=== PATIENT | male | born 1950 | race Caucasian/White ===

== ENCOUNTER 2020-01-15 11:17 | Emergency (ER) | payer OTHER ==
[~2020-01-15] VITALS: Ht 182.9 cm; Wt 86.2 kg
[2020-01-15 11:27] VITALS: BP 141/88
--- NOTE | 2020-01-15 12:20 | NUR ---
69 Y/O M C/C LUE PAIN DUE TO TRIPPING AND FALLING. PER PT DENIES HEAD INJURY / LOC. PT 10/10 PAIN ON MOVEMENT ; 3/10 PAIN AT REST. PT NKA. HX SCHIZOPHRENIA. RX FOR SCHIZOPHRENIA, PT UNABLE TO NAME RX. NO N/V/D. SIDE RAIL X1. PT AMBULATORY. A/OX4. [facility] WDL/ROM LIMITED.
--- NOTE | 2020-01-15 12:33 | NUR ---
Dr. Hector is evaluating the patient at bedside.
--- NOTE | 2020-01-15 12:49 | NUR ---
XRAY AT BEDSIDE
[2020-01-15] MEDS ORDERED: IBUPROFEN 400 MG TAB PO ONE (13:35)
--- NOTE | 2020-01-15 13:55 | NUR ---
PT RESTING IN BED, SIDE RAIL X1
--- NOTE | 2020-01-15 14:00 | NUR ---
APPLIED SLING TO LEFT ARM WITHOUT ANY ISSUES
[2020-01-15 14:01] VITALS: BP 141/88
== END 2020-01-15 14:01 | disposition home or self-care (01) ==
LOC: MED 11:17
DX: S40.022A Contusion of left upper arm, initial encounter (principal); F20.9 Schizophrenia, unspecified; F17.210 Nicotine dependence, cigarettes, uncomplicated; W19.XXXA Unspecified fall, initial encounter; Y93.89 Activity, other specified; Y92.89 Other specified places as the place of occurrence of the external cause; Y99.8 Other external cause status
CPT/HCPCS: 73060; 73080; 99284; Q0092

== ENCOUNTER 2020-05-26 16:03 | Emergency (ER) | payer OTHER ==
[~2020-05-26] VITALS: Ht 182.9 cm; Wt 81.6 kg
[2020-05-26 16:15] VITALS: BP 105/80
[2020-05-26 19:11] VITALS: BP 105/80
== END 2020-05-26 19:12 | disposition home or self-care (01) ==
LOC: MED 16:03
DX: R60.0 Localized edema (principal); F20.9 Schizophrenia, unspecified; F17.200 Nicotine dependence, unspecified, uncomplicated; Z71.6 Tobacco abuse counseling
CPT/HCPCS: 93971; 99284; Q0092

== ENCOUNTER 2023-04-04 13:08 | Inpatient (IN) | payer OTHER ==
[~2023-04-04] VITALS: Ht 177.8 cm; Wt 86.2 kg
[2023-04-04 13:11] VITALS: BP 105/62
[2023-04-04 13:43] LABS: BASOPHILS # (AUTO) 0.1 K/uL (0.00-0.22); BASOPHILS % (AUTO) 0.5 % (0.0-2.0); EOSINOPHILS % (AUTO) 0.1 % (0.0-4.0); HEMATOCRIT 38.2 % (36-52); HEMOGLOBIN 12.9 g/dL (12.0-18.0); LYMPHOCYTES % (AUTO) 6.8 % (20.5-51.1); MEAN CORPUSCULAR HEMOGLOBIN 29 pg (27-31); MEAN CORPUSCULAR HGB CONC 34 g/dL (33-37); MEAN CORPUSCULAR VOLUME 86.2 fL (80-94); MONOCYTES # (AUTO) 0.8 K/uL (0.8-1.0); MONOCYTES % (AUTO) 5.4 % (1.7-9.3); NEUTROPHILS # (AUTO) 13.4 K/uL (1.8-7.7); NEUTROPHILS % (AUTO) 87.2 % (42.2-75.2); PLATELET COUNT (AUTO) 215 K/uL (140-450); RED BLOOD CELL COUNT(AUTO) 4.43 MIL/uL (4.20-6.10); RED CELL DISTRIBUTION WIDTH 14.8 % (11.6-13.7); WHITE BLOOD COUNT (AUTO) 15.4 K/uL (4.8-10.8)
[2023-04-04 14:05] LABS: ALBUMIN 2.9 g/dL (3.4-5.0); ANION GAP 11.8 (8-16); ASPARTATE AMINOTRANSFERASE 15 U/L (15-37); CARBON DIOXIDE 25.6 mmol/L (21-32); CHLORIDE 103 mmol/L (98-107); CREATININE 1.3 mg/dL (0.6-1.3); GLUCOSE 133 mg/dL (74-106); POTASSIUM 3.4 mmol/L (3.5-5.1); SODIUM SERUM 137 mmol/L (136-145); UREA NITROGEN, BLOOD 13 mg/dL (7-18)
[2023-04-04] MEDS ORDERED: IPRATROPIUM 0.02% 0.5 MG/2.5 ML NEBU INH ONE ×2 (14:15→16:05)
[2023-04-04] MEDS ORDERED: predniSONE 20 MG TAB PO ONE (14:15)
[2023-04-04] MEDS ORDERED: ALBUTEROL 0.083% 2.5 MG/3 ML NEBU INH ONE ×2 (14:15→16:05)
[2023-04-04] MEDS ORDERED: predniSONE 20 MG TAB ONE (16:23)
[2023-04-04] MEDS ORDERED: AZITHROMYCIN 500 MG in DEXTROSE 5% 250 ML IV ONE (17:00)
[2023-04-04] MEDS ORDERED: cefTRIAXone 1,000 MG VIAL ONE (17:31)
[2023-04-04] MEDS ORDERED: AZITHROMYCIN 500 MG INJ VIAL IV ONE (17:32)
[2023-04-04] MEDS ORDERED: PIPERACILLIN/TAZOBACTAM 3.375 GM in DEXTROSE 5% 50 ML IV SCH (18:31)
[2023-04-04] MEDS ORDERED: PIPERACILLIN/TAZOBACTAM 3.375 GM VIAL IV ONE ×2 (18:33→23:15)
[2023-04-04 18:54] LABS: APPEARANCE,URINE CLEAR (CLEAR); BILIRUBIN,URINE NEGATIVE (NEGATIVE); BLOOD, URINE NEGATIVE (NEGATIVE); COLOR,URINE YELLOW (YELLOW); LEUKOCYTE ESTERASE ,URINE NEGATIVE (NEGATIVE); NITRITE, URINE NEGATIVE (NEGATIVE); PH,URINE 6.5 (5.0-9.0); UGLUCOSE NEGATIVE (NEGATIVE)
--- NOTE | 2023-04-04 19:45 | NUR ---
Patient report received from López BARR. Patient comfortable and safe in bed. Patient being monitored at this time, connected to monitor. VS stable at this time.
--- NOTE | 2023-04-04 20:40 | NUR ---
Admitted from , with chief complaint of GENERALIZED WEAKNESS , 72 y/o ,Male, Cooperative, admitted for pneumonia, awake, alert and oriented x 3. no o2 1l nc sating 97 %. no s/sx of distress at the moment. pt can ambulate with assist. sandwich and apple juice provided. oriented to call light, bed, phone,television, bathroom, smoking policy, visiting hours, procedures, ID bracelet on. Belongings list checked.all precautions in place. call light within reach. will continue to monitor.
--- NOTE | 2023-04-04 20:50 | NUR ---
Patient will be admitted to care of Dr. Freire. Admited to Telemetry. Will go to room 123B. Belongings list completed. Report to Redd ABR[facility].
[2023-04-04] MEDS: PIPERACILLIN/TAZOBACTAM 3.375 GM in DEXTROSE 5% 50 ML IV SCH (23:36)
[2023-04-05] VITALS: BP 114/82
--- NOTE | 2023-04-05 | NUR ---
SCHEDULED MEDICATIONS GIVEN. PT TOLERATED WELL. NO ACUTE DRUG REACTION NOTED. ALL PRECAUTIONS IN PLACE. CALL LIGHT WITHIN REACH. WILL CONTINUE TO MONITOR.
--- NOTE | 2023-04-05 01:20 | NUR ---
PT ASLEEP. NO S/SX OF DISTRESS NOTED. O2 SAT AT 98%. ALL PRECAUTIONS IN PLACE. CALL LIGHT WITHIN REACH. WILL CONTINUE TO MONITOR.
[2023-04-05] MEDS ORDERED: PIPERACILLIN/TAZOBACTAM 3.375 GM VIAL IV ONE (03:45)
[2023-04-05 04:00] VITALS: BP 112/62
[2023-04-05] MEDS ORDERED: PIPERACILLIN/TAZOBACTAM 3.375 GM in DEXTROSE 5% 50 ML IV SCH (05:00)
[2023-04-05 05:01] LABS: BASOPHILS % (AUTO) 0.3 % (0.0-2.0); HEMATOCRIT 38.1 % (36-52); HEMOGLOBIN 12.8 g/dL (12.0-18.0); LYMPHOCYTES # (AUTO) 0.6 K/uL (2.0-11.5); LYMPHOCYTES % (AUTO) 4.2 % (20.5-51.1); MEAN CORPUSCULAR HEMOGLOBIN 29 pg (27-31); MEAN CORPUSCULAR HGB CONC 34 g/dL (33-37); MEAN CORPUSCULAR VOLUME 86.3 fL (80-94); MONOCYTES # (AUTO) 0.5 K/uL (0.8-1.0); MONOCYTES % (AUTO) 3.9 % (1.7-9.3); NEUTROPHILS # (AUTO) 12.3 K/uL (1.8-7.7); NEUTROPHILS % (AUTO) 91.6 % (42.2-75.2); PLATELET COUNT (AUTO) 230 K/uL (140-450); RED BLOOD CELL COUNT(AUTO) 4.41 MIL/uL (4.20-6.10); WHITE BLOOD COUNT (AUTO) 13.4 K/uL (4.8-10.8)
[2023-04-05 05:26] LABS: ANION GAP 9.4 (8-16); CARBON DIOXIDE 27.9 mmol/L (21-32); CHLORIDE 108 mmol/L (98-107); CREATININE 1.2 mg/dL (0.6-1.3); GLUCOSE 166 mg/dL (74-106); POTASSIUM 3.3 mmol/L (3.5-5.1); SODIUM SERUM 142 mmol/L (136-145); UREA NITROGEN, BLOOD 14 mg/dL (7-18)
[2023-04-05] MEDS: PIPERACILLIN/TAZOBACTAM 3.375 GM in DEXTROSE 5% 50 ML IV SCH ×3 (05:40→18:08)
--- NOTE | 2023-04-05 05:45 | NUR ---
SCHEDULED MEDICATION GIVEN. PT TOLERATED WELL. ALL PRECAUTIONS IN PLACE. WILL CONTINUE TO MONITOR.
--- NOTE | 2023-04-05 06:56 | NUR ---
PT IS STABLE. NO ACUTE EVENTS THROUGHOUT THE NIGHT. ALL NEEDS MET. NO S/SX OF DISTRESS AT THE MOMENT. NO COMPLAINS OF PAIN. ALL SAFETY PRECAUTIONS IN PLACE. CALL LIGHT WITHIN REACH. WILL ENDORSE TO DAY SHIFT NURSE.
--- NOTE | 2023-04-05 07:06 | NUR ---
ASSUMED CONTINUITY OF CARE. INITIAL ASSESSMENT DONE. KEEP COMFORTABLE ON BED. CALL LIGHT WITHIN REACH.
[2023-04-05] MEDS ORDERED: POTASSIUM CHLORIDE 10 MEQ TABER PO PRN (07:35)
[2023-04-05] MEDS ORDERED: HYDROcodone/APAP 7.5/325 MG 1 TAB PO PRN (07:35)
[2023-04-05] MEDS: NACL 0.9% 1,000 ML IV SCH ×2 (07:35→17:15)
[2023-04-05] MEDS ORDERED: MAG SULF 2000 MG/WATER PREMIX 50 ML IV PRN (07:35)
[2023-04-05] MEDS ORDERED: ACETAMINOPHEN 325 MG TAB PO PRN (07:35)
[2023-04-05] MEDS ORDERED: ONDANSETRON 4 MG/2 ML VIAL IVP PRN (07:35)
[2023-04-05 08:00] VITALS: BP 137/84
--- NOTE | 2023-04-05 08:19 | NUR ---
DR. SINGH CAME AND SPOKE TO PT. AT BEDSIDE.
[2023-04-05 08:22] LABS: PROTHROMBIN TIME 10.2 secs (10.8-13.4)
[2023-04-05] MEDS: DOCUSATE SODIUM 100 MG GELCAP PO SCH ×2 (08:43→21:35)
[2023-04-05] MEDS: PANTOPRAZOLE 40 MG INJ VIAL IVP SCH (08:55)
--- NOTE | 2023-04-05 09:00 | NUR ---
PATIENT HAS BEEN SCREENED AND CATEGORIZED MODERATE NUTRITION RISK. PATIENT WILL BE SEEN WITHIN 3-5 DAYS OF ADMISSION. 04/07/23-04/09/[address]
[2023-04-05 09:56] LABS: CHOL/HDL RATIO 2.5 (1-4.5); FREE T4 (FREE THYROXINE) 1.09 ng/dL (0.76-1.46); MAGNESIUM 2.3 mg/dL (1.8-2.4); PHOSPHORUS 2.2 mg/dL (2.5-4.9); THYROID STIMULATING HORMONE 0.8 uIU/mL (0.34-3.74)
[2023-04-05 10:18] LABS: BARBITURATE, URINE NEGATIVE ng/ml (NEG <=200); BENZODIAZEPINE, URINE NEGATIVE ng/mL (NEG <=200); CANNABINOID, URINE NEGATIVE ng/mL (NEG <=50); COCAINE, URINE NEGATIVE ng/mL (NEG <=300); OPIATE, URINE NEGATIVE ng/mL (NEG <=2000); PHENCYCLIDINE SCREEN,URINE NEGATIVE ng/mL (NEG <=25)
[2023-04-05 12:00] VITALS: BP 125/75
--- NOTE | 2023-04-05 15:36 | NUR ---
SEND A COPY OF PT. HOME MEDS LIST TO DR. SINGH FOR MEDS CONTINUATION.
--- NOTE | 2023-04-05 15:41 | NUR ---
Broke Handler: Ingrid CARIAS, in to see patient at bedside. The patient is alert and oriented. I introduced myself and explained my reason for the visit. The patient was in agreement to speaking with me. The patient resides at [facility]. He states he was ambulatory and didn't use any assistive devices. The patient is independent in most areas. He does not have a Power of Fabrication Lead, but indicates he has a conservator through [facility]. There is a that comes to the home to see him regularly. The discharge plan is to return back to the [facility]. At time of discharge, [facility] will be called to arrange transport.
[2023-04-05] MEDS ORDERED: OLAN20TA1 PO (15:57)
[2023-04-05 16:00] VITALS: BP 113/70
--- NOTE | 2023-04-05 16:04 | NUR ---
PHYSICAL THERAPIST CAME FOR PT. EVAL AND TREATMENT. PT. AMBULATES ON HALLWAY WITH ASSISTANCE FROM PHYSICAL THERAPIST.
--- NOTE | 2023-04-05 16:22 | NUR ---
SPUTUM COLLECTED AND DROPPED OFF AT LAB.
[2023-04-05] MEDS: OLANZapine 5 MG TAB PO SCH (17:14)
[2023-04-05] MEDS ORDERED: ALBUTEROL SULFATE/IPRATROPIU 3 ML SOL IH PRN (17:40)
--- NOTE | 2023-04-05 19:09 | NUR ---
PT RECEIVED ON 2L NC. SLIGHT EXPIRATORY WHEEZING NOTED. NO DISTRESS NOTED, SYMMETRICAL CHEST RISE. LEFT PT RESTING COMFORTABLY. WILL CONTINUE TO MONITOR PT.
--- NOTE | 2023-04-05 19:11 | NUR ---
RECEIVED ENDORSEMENT FROM DAY SHIFT NURSE FOR CONTINUITY OF CARE. PT IS ON BED AWAKE AND ALERT. ABLE TO VERBALIZED NEEDS. PT VERBALIZED OF NOT HAVING APPETITE TO EAT. DINNER CONSUME 25%. PT DENIES OF PAIN OR DISCOMFORT. NO SOB OR DISTRESS.
--- NOTE | 2023-04-05 19:12 | NUR ---
REPORT GIVEN TO ERIS SCHAEFFER. IN STABLE CONDITION. IVF INFUSING WELL. ENDORSED ABOUT PT. [facility] CALL FOR MEDICAL DECISION FOR THE PT..
[2023-04-05 20:00] VITALS: BP 114/71
--- NOTE | 2023-04-05 22:00 | NUR ---
PT IS SLEEPING WELL BUT AROUSABLE ON STIMULI.
[2023-04-06] VITALS: BP 104/65
[2023-04-06] MEDS: PIPERACILLIN/TAZOBACTAM 3.375 GM in DEXTROSE 5% 50 ML IV SCH ×5 (00:47→23:20)
--- NOTE | 2023-04-06 01:00 | NUR ---
PT IS DENIES OF PAIN OR DISCOMFORT. NO SOB OR DISTRESS.
[2023-04-06 04:00] VITALS: BP 114/63
--- NOTE | 2023-04-06 04:30 | NUR ---
PT IS ON STABLE CONDITION, NO FACIAL GRIMACING.
[2023-04-06 05:29] LABS: BASOPHILS % (AUTO) 0.5 % (0.0-2.0); EOSINOPHILS # (AUTO) 0.3 K/uL (0-0.4); EOSINOPHILS % (AUTO) 4.3 % (0.0-4.0); HEMATOCRIT 33.8 % (36-52); HEMOGLOBIN 11.6 g/dL (12.0-18.0); LYMPHOCYTES # (AUTO) 1.7 K/uL (2.0-11.5); LYMPHOCYTES % (AUTO) 22.3 % (20.5-51.1); MEAN CORPUSCULAR HEMOGLOBIN 30 pg (27-31); MEAN CORPUSCULAR HGB CONC 34 g/dL (33-37); MEAN CORPUSCULAR VOLUME 86.7 fL (80-94); MONOCYTES # (AUTO) 0.4 K/uL (0.8-1.0); MONOCYTES % (AUTO) 5.1 % (1.7-9.3); NEUTROPHILS # (AUTO) 5.1 K/uL (1.8-7.7); NEUTROPHILS % (AUTO) 67.8 % (42.2-75.2); PLATELET COUNT (AUTO) 211 K/uL (140-450); WHITE BLOOD COUNT (AUTO) 7.6 K/uL (4.8-10.8)
[2023-04-06 06:16] LABS: ANION GAP 8.8 (8-16); CHLORIDE 111 mmol/L (98-107); GLUCOSE 111 mg/dL (74-106); POTASSIUM 3.8 mmol/L (3.5-5.1); SODIUM SERUM 144 mmol/L (136-145); UREA NITROGEN, BLOOD 17 mg/dL (7-18)
[2023-04-06 06:20] LABS: MAGNESIUM 2.2 mg/dL (1.8-2.4); PHOSPHORUS 2.6 mg/dL (2.5-4.9)
--- NOTE | 2023-04-06 07:30 | NUR ---
RECEIVED PT FROM FUNERAL SERVICE APPRENTICE NURSE. FOR CONTINUITY OF CARE. PT IS SLEEPING. VISIBLE CHEST RISE AND FALL. RESPIRATIONS EVEN AND UNLABORED ON 2L NC. PT AROUSABLE TO VOICE. AOX4. SKIN WARM AND DRY TO TOUCH. IV ON R AC 20G, INFUSING NS @50CC. NO DISTRESS NOTED. CALL LIGHT WITHIN REACH. ALL SAFETY PRECAUTIONS IN PLACE.
--- NOTE | 2023-04-06 07:55 | NUR ---
EKG ORDERED ON PT FOR BRADYCARDIA. PT CURRENTLY SITTING UP AND EATING BREAKFAST, HEART RATE IN THE 60S. WILL RETURN LATER FOR EKG. NO DISTRESS NOTED.
[2023-04-06 08:00] VITALS: BP 116/72
[2023-04-06] MEDS: OLANZapine 5 MG TAB PO SCH ×2 (08:48→17:56)
[2023-04-06] MEDS: DOCUSATE SODIUM 100 MG GELCAP PO SCH ×2 (08:48→20:39)
--- NOTE | 2023-04-06 08:53 | NUR ---
PROVIDED PT TEACHING REGARDING SCHEDULED MEDS, ADMINISTERED MORNING SCHEDULED MEDS. PT TOLERATING WELL.
--- NOTE | 2023-04-06 09:44 | NUR ---
MAKING ROUNDS PT NOTED WITH COUGH, NO PRN ON EMAR. DR HEARD INFORMED.
[2023-04-06] MEDS ORDERED: guaiFENesin DM 200/20 MG-10 ML 10 ML UDC PO PRN (10:00)
[2023-04-06] MEDS: PANTOPRAZOLE 40 MG INJ VIAL IVP SCH (10:03)
--- NOTE | 2023-04-06 10:13 | NUR ---
PT SITTING IN BED WATCHING TV, ADMINISTERED PRN MEDICATION FOR COUGH.
[2023-04-06 12:00] VITALS: BP 131/71
--- NOTE | 2023-04-06 14:48 | NUR ---
PT SLEEPING. EQUAL CHEST RISE. RESTING COMFORTABLY. NO DISTRESS NOTED. WILL CONTINUE TO MONITOR.
[2023-04-06 16:00] VITALS: BP 121/83
--- NOTE | 2023-04-06 19:20 | NUR ---
ENDORSED PT TO APPLICATION COORDINATOR NURSE FOR CONTINUITY OF CARE. PT IS STABLE.
[2023-04-06 20:00] VITALS: BP 128/76
--- NOTE | 2023-04-06 20:00 | NUR ---
RECEIVE IN BED NO VOICED COMPLAINTS
[2023-04-06] MEDS: NACL 0.9% 1,000 ML IV SCH (23:35)
[2023-04-07] VITALS: BP 120/64
[2023-04-07 04:00] VITALS: BP 137/80
[2023-04-07 05:28] LABS: BASOPHILS # (AUTO) 0.1 K/uL (0.00-0.22); BASOPHILS % (AUTO) 1.3 % (0.0-2.0); EOSINOPHILS # (AUTO) 0.4 K/uL (0-0.4); EOSINOPHILS % (AUTO) 7.7 % (0.0-4.0); HEMATOCRIT 36.2 % (36-52); HEMOGLOBIN 12.3 g/dL (12.0-18.0); LYMPHOCYTES # (AUTO) 1.4 K/uL (2.0-11.5); LYMPHOCYTES % (AUTO) 26.8 % (20.5-51.1); MEAN CORPUSCULAR HEMOGLOBIN 30 pg (27-31); MEAN CORPUSCULAR HGB CONC 34 g/dL (33-37); MEAN CORPUSCULAR VOLUME 88.1 fL (80-94); MONOCYTES # (AUTO) 0.4 K/uL (0.8-1.0); MONOCYTES % (AUTO) 7.6 % (1.7-9.3); NEUTROPHILS # (AUTO) 2.9 K/uL (1.8-7.7); NEUTROPHILS % (AUTO) 56.6 % (42.2-75.2); PLATELET COUNT (AUTO) 237 K/uL (140-450); RED BLOOD CELL COUNT(AUTO) 4.11 MIL/uL (4.20-6.10); RED CELL DISTRIBUTION WIDTH 14.9 % (11.6-13.7); WHITE BLOOD COUNT (AUTO) 5.2 K/uL (4.8-10.8)
[2023-04-07] MEDS: PIPERACILLIN/TAZOBACTAM 3.375 GM in DEXTROSE 5% 50 ML IV SCH (05:40)
--- NOTE | 2023-04-07 07:20 | NUR ---
RECEIVED PT FROM NIGHT NURSE CONTINUITY OF CARE. AWAKE X4, RESPIRATION EVEN AT RM AIR, SKIN WARM TO TOUCH, ABLE TO VERBALIZE OWN NEEDS. IV RIGHT ARM 20 TOM, IV INFUSING NS AT 50, CALL LIGHT WITHIN REACH. ALL SAFETY MEASURE IN PLACE
[2023-04-07 07:33] LABS: CARBON DIOXIDE 24.7 mmol/L (21-32); CHLORIDE 110 mmol/L (98-107); GLUCOSE 98 mg/dL (74-106); POTASSIUM 3.7 mmol/L (3.5-5.1); SODIUM SERUM 144 mmol/L (136-145); UREA NITROGEN, BLOOD 14 mg/dL (7-18)
[2023-04-07 07:38] LABS: MAGNESIUM 1.9 mg/dL (1.8-2.4); PHOSPHORUS 3.8 mg/dL (2.5-4.9)
[2023-04-07 08:00] VITALS: BP 120/75
[2023-04-07] MEDS: OLANZapine 5 MG TAB PO SCH (09:48)
[2023-04-07] MEDS: DOCUSATE SODIUM 100 MG GELCAP PO SCH (09:48)
[2023-04-07] MEDS ORDERED: AMOX-999 PO (10:28)
--- NOTE | 2023-04-07 10:30 | NUR ---
ROUNDED ON PT, FOUND PT ON RA SATURATION 95%, CLEAR DIMINISHED BREATH SOUNDS, PR63 GOOD CHEST RISE, AT THIS TIME NO DISTRESS NOTED. WILL CONTINUE TO MONITOR
[2023-04-07] MEDS: PANTOPRAZOLE 40 MG INJ VIAL IVP SCH (10:41)
[2023-04-07 11:51] VITALS: BP 120/75
[2023-04-07 12:00] VITALS: BP 129/76
--- NOTE | 2023-04-07 13:19 | NUR ---
04/07/23 RD INITIAL ASSESSMENT COMPLETED PLEASE REFER TO NUTRITION ASSESSMENT UNDER CARE ACTIVITY FOR ESTIMATED NUTRITIONAL NEEDS. 1. CONTINUE CARDIAC DIET TOLERATED 2. RD ENCOURAGED PATIENT TO READ AND FOLLOW HEART HEALTHY DIET ONCE HE LEAVES THE HOSPITAL. 3. RD TO FOLLOW-UP 7 DAYS, LOW RISK DIANA CASON RD
--- NOTE | 2023-04-07 14:10 | NUR ---
DISCUSS DISCHARGE PACKAGE WITH PT, REMOVE IV AND NAME BAND FROM PT, PT GOT DRESS, PT PUT BELONGING IN ONE BAG, PT IN STABLE CONDITION, CALLED [facility] FOR PICKUP. 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 PT WHEELED TO LOBBY GOT IN DISPATCH VEHICLE.
--- NOTE | 2023-04-07 16:12 | NUR ---
PHYSICAL THERAPY CO-SIGN The Physical Therapy Progress Notes documented by Corn Miller have been reviewed. Reviewed/Co-Signed by: Chrissy Berger PT Documentation Done by:MAJOR ULLOA BALL HOLDER Addendum: 04/07/23 at 1612 by Chrissy Berger PT Amended: Links added.
== END 2023-04-07 16:22 | disposition home or self-care (01) | DRG 193 ==
LOC: MED 13:33 → MTU 18:27
DX: J18.9 Pneumonia, unspecified organism (principal); J96.01 Acute respiratory failure with hypoxia; E44.0 Moderate protein-calorie malnutrition; E87.6 Hypokalemia; Z68.27 Body mass index [BMI] 27.0-27.9, adult; F20.9 Schizophrenia, unspecified; Z20.822 Contact with and (suspected) exposure to COVID-19; F41.9 Anxiety disorder, unspecified; F32.A Depression, unspecified; J44.9 Chronic obstructive pulmonary disease, unspecified
CPT/HCPCS: 36415; 71045; 80048; 80053; 80305; 81003; 82150; 83036; 83605; 83690; 83735; 83880; 84100; 84439; 84443; 84484; 85025; 85610; 85730; 87040; 87070; 87081; 87086; 87205; 89220; 93005; 94640; 96365; 96367; 97110; 97112; 97116; 97530; 99285; C9113; J0456; J0696; J1644; J2543; J7060; J7512; J7613; J7644; Q0092